=== PATIENT | female | born 1995 | race Two or more races ===

== ENCOUNTER 2018-08-19 17:11 | Emergency (ER) | payer OTHER ==
[~2018-08-19] VITALS: Ht 149.9 cm; Wt 54.4 kg
[2018-08-19] MEDS ORDERED: OBTREX DHA PRE1 EACH (17:26)
== END 2018-08-19 20:54 | disposition home or self-care (01) ==
LOC: ER 17:11
DX: O20.0 Threatened abortion (principal); Z34.01 Encounter for supervision of normal first pregnancy, first trimester

== ENCOUNTER 2018-09-19 16:56 | Emergency (ER) | payer OTHER ==
[~2018-09-19] VITALS: Ht 152.4 cm; Wt 56.7 kg
[~2018-09-19 16:56] MED LIST: OBTREX DHA PRE1 EACH
== END 2018-09-19 22:25 | disposition home or self-care (01) ==
LOC: ER 16:56
DX: O26.891 Other specified pregnancy related conditions, first trimester (principal); R10.2 Pelvic and perineal pain; Z34.01 Encounter for supervision of normal first pregnancy, first trimester

== ENCOUNTER 2018-11-12 10:24 | Emergency (ER) | payer OTHER ==
[~2018-11-12] VITALS: Ht 152.4 cm; Wt 55.8 kg
== END 2018-11-12 17:12 | disposition home or self-care (01) ==
LOC: ER 10:24
DX: O26.892 Other specified pregnancy related conditions, second trimester (principal); R10.2 Pelvic and perineal pain; O34.12 Maternal care for benign tumor of corpus uteri, second trimester; D25.9 Leiomyoma of uterus, unspecified; Z34.02 Encounter for supervision of normal first pregnancy, second trimester

== ENCOUNTER 2019-01-09 10:36 | Emergency (ER) | payer OTHER ==
[~2019-01-09] VITALS: Ht 152.4 cm; Wt 55.8 kg
[2019-01-09] MEDS ORDERED: [UNRECOGNIZED DRUG - OTHER] PO (11:01)
[2019-01-09] MEDS ORDERED: IPRAT-ALBUT 0.5-3 ML IH (15:07)
[2019-01-09] MEDS ORDERED: MUCINEX DM ER1 EAC1 PO (15:07)
[2019-01-09] MEDS ORDERED: BUDESONIDE0.5 MG/2 M IH (15:07)
[2019-01-09] MEDS ORDERED: ZITHROMAX500 MG PO (15:07)
== END 2019-01-09 15:50 | disposition home or self-care (01) ==
LOC: ER 10:36
DX: O26.892 Other specified pregnancy related conditions, second trimester (principal); J06.9 Acute upper respiratory infection, unspecified; B96.0 Mycoplasma pneumoniae [M. pneumoniae] as the cause of diseases classified elsewhere; Z34.02 Encounter for supervision of normal first pregnancy, second trimester

== ENCOUNTER 2019-01-10 07:26 | Emergency (ER) | payer OTHER ==
[~2019-01-10] VITALS: Ht 152.4 cm; Wt 55.8 kg
[~2019-01-10 07:26] MED LIST changes: +BUDESONIDE0.5 MG/2 M IH; +IPRAT-ALBUT 0.5-3 ML IH; +MUCINEX DM ER1 EAC1 PO; +ZITHROMAX500 MG PO; +[UNRECOGNIZED DRUG - OTHER] PO
== END 2019-01-10 19:10 | disposition home or self-care (01) ==
LOC: ER 07:26
DX: O26.892 Other specified pregnancy related conditions, second trimester (principal); J45.998 Other asthma; R10.2 Pelvic and perineal pain; Z3A.25 25 weeks gestation of pregnancy

== ENCOUNTER 2019-02-07 07:53 | Outpatient (CLI) | payer OTHER | END 2019-02-07 13:03 | disposition home or self-care (01) | LOC: OBS/DEL 07:53 | DX: O46.8X3 Other antepartum hemorrhage, third trimester (principal); Z34.03 Encounter for supervision of normal first pregnancy, third trimester; O34.13 Maternal care for benign tumor of corpus uteri, third trimester; D25.9 Leiomyoma of uterus, unspecified ==

== ENCOUNTER 2019-03-04 13:05 | Outpatient (CLI) | payer OTHER | END 2019-03-05 10:44 | disposition home or self-care (01) | LOC: OBS/DEL 13:05 | DX: O60.03 Preterm labor without delivery, third trimester (principal); Z34.03 Encounter for supervision of normal first pregnancy, third trimester ==

== ENCOUNTER 2019-04-17 02:35 | Inpatient (IN) | payer OTHER ==
[~2019-04-17] VITALS: Ht 152.4 cm; Wt 63.0 kg
[2019-04-17] MEDS ORDERED: VENTOLIN HFA18 GM IH (02:41)
[2019-04-17] MEDS ORDERED: ADVAIR HFA 230/12 GM IH (02:42)
== END 2019-04-19 13:22 | disposition home or self-care (01) | DRG 807 ==
LOC: LDR 02:35 → OB/GYN 20:33
PROVIDERS: ADMIT Obstetrics & Gynecology
PROC: 10E0XZZ Delivery of Products of Conception, External Approach (ICD-10-PCS; principal; 2019-04-17)
PROC: 0W8NXZZ Division of Female Perineum, External Approach (ICD-10-PCS; 2019-04-17)
PROC: 3E033VJ Introduction of Other Hormone into Peripheral Vein, Percutaneous Approach (ICD-10-PCS; 2019-04-17)
PROC: 4A1HXCZ Monitoring of Products of Conception, Cardiac Rate, External Approach (ICD-10-PCS; 2019-04-17)
DX: O80 Encounter for full-term uncomplicated delivery (principal); Z37.0 Single live birth; Z3A.39 39 weeks gestation of pregnancy

== ENCOUNTER 2021-11-14 18:34 | Emergency (ER) | payer OTHER ==
[~2021-11-14] VITALS: Ht 152.4 cm; Wt 60.8 kg
[~2021-11-14 18:34] MED LIST changes: +ADVAIR HFA 230/12 GM IH; +VENTOLIN HFA18 GM IH
== END 2021-11-14 21:42 | disposition home or self-care (01) ==
LOC: ER 18:34
DX: A60.09 Herpesviral infection of other urogenital tract (principal)

== ENCOUNTER 2023-02-08 09:57 | Emergency (ER) | payer OTHER ==
[~2023-02-08] VITALS: Ht 152.4 cm; Wt 61.2 kg
[2023-02-08] MEDS ORDERED: SINGULAIR 10MG10 MG PO (10:38)
== END 2023-02-08 11:16 | disposition home or self-care (01) ==
LOC: ER 09:57
DX: T78.49XA Other allergy, initial encounter (principal); X58.XXXA Exposure to other specified factors, initial encounter; Z91.011 Allergy to milk products; Z91.013 Allergy to seafood

== ENCOUNTER 2023-03-11 06:11 | Emergency (ER) | payer OTHER ==
[~2023-03-11] VITALS: Ht 152.4 cm; Wt 62.6 kg
[~2023-03-11 06:11] MED LIST changes: +SINGULAIR 10MG10 MG PO
[2023-03-11] MEDS ORDERED: MILLIPRED5 MG (06:25)
[2023-03-11] MEDS ORDERED: PROAIR RESPICL90 MCG (06:25)
== END 2023-03-11 11:31 | disposition home or self-care (01) ==
LOC: ER 06:11
DX: J45.998 Other asthma (principal); Z91.013 Allergy to seafood; Z91.011 Allergy to milk products; Z20.822 Contact with and (suspected) exposure to COVID-19

== ENCOUNTER 2023-04-01 14:26 | Inpatient (IN) | payer OTHER ==
[~2023-04-01] VITALS: Ht 157.5 cm; Wt 63.5 kg
[~2023-04-01 14:26] MED LIST changes: +MILLIPRED5 MG; +PROAIR RESPICL90 MCG
[2023-04-01] MEDS ORDERED: SINGULAIR10 MG (15:24)
== END 2023-04-04 15:09 | disposition home or self-care (01) | DRG 203 ==
LOC: ER 14:26 → MEDJ 20:53 → SEC-K 20:53 → MEDJ 04-02 17:05
PROVIDERS: ADMIT Specialist; ATTEND Specialist
DX: J45.41 Moderate persistent asthma with (acute) exacerbation (principal); R09.02 Hypoxemia; Z20.822 Contact with and (suspected) exposure to COVID-19; A49.3 Mycoplasma infection, unspecified site

== ENCOUNTER 2023-08-25 09:31 | Emergency (ER) | payer OTHER ==
[~2023-08-25] VITALS: Ht 152.4 cm; Wt 60.8 kg
[~2023-08-25 09:31] MED LIST changes: +SINGULAIR10 MG
[2023-08-25 11:01] LABS: HEMOGLOBIN 14.3 g/dL (12.0-15.00); MEAN CELL VOLUME 92.2 fL (80.00-100.00); MEAN CORPUSCULAR HEMOGLOBIN 30.7 pg (27.00-32.0); MEAN CORPUSCULAR HGB CONC 33.3 g/dl (32.0-36.0); PLATELET COUNT 289 K/uL (150-450); RED BLOOD COUNT 4.66 M/uL (4.00-6.00)
[2023-08-25 12:12] LABS: CALCIUM 8.5 mg/dL (8.5-10.1); CREATININE SERUM 0.54 mg/dL (0.55-1.02); GFR 134.43; POTASSIUM 3.84 mEq/L (3.5-5.1)
== END 2023-08-25 13:29 | disposition home or self-care (01) ==
LOC: ER 09:31
PROVIDERS: Emergency Medicine
DX: J45.901 Unspecified asthma with (acute) exacerbation (principal); Z91.011 Allergy to milk products; Z91.013 Allergy to seafood

== ENCOUNTER 2023-09-03 16:22 | Emergency (ER) | payer OTHER ==
[~2023-09-03] VITALS: Ht 152.4 cm; Wt 63.5 kg
[2023-09-03 17:09] LABS: HEMATOCRIT 42.7 % (36.0-45.00); HEMOGLOBIN 14.1 g/dL (12.0-15.00); MEAN CELL VOLUME 92.1 fL (80.00-100.00); MEAN CORPUSCULAR HEMOGLOBIN 30.3 pg (27.00-32.0); MEAN CORPUSCULAR HGB CONC 32.9 g/dl (32.0-36.0); PLATELET COUNT 300 K/uL (150-450); RED BLOOD COUNT 4.64 M/uL (4.00-6.00); RED CELL DISTRIBUTION WIDTH 12.9 % (11.5-14.5)
== END 2023-09-03 18:59 | disposition home or self-care (01) ==
LOC: ER 16:22
PROVIDERS: General Practice
DX: R51.9 Headache, unspecified (principal); Z91.013 Allergy to seafood; Z91.011 Allergy to milk products
CPT/HCPCS: 36415; 70450; 96372; 99284; J3490

== ENCOUNTER 2023-12-19 10:14 | Emergency (ER) | payer OTHER ==
[~2023-12-19] VITALS: Ht 152.4 cm; Wt 61.7 kg
[2023-12-19] MEDS ORDERED: ALBUTEROL2.5 MG/3 M IH (10:46)
== END 2023-12-19 13:01 | disposition home or self-care (01) ==
LOC: ER 10:14
DX: J06.9 Acute upper respiratory infection, unspecified (principal); Z20.822 Contact with and (suspected) exposure to COVID-19; Z91.011 Allergy to milk products; Z91.013 Allergy to seafood

== ENCOUNTER 2024-06-25 15:48 | Emergency (ER) | payer OTHER ==
[~2024-06-25] VITALS: Ht 152.4 cm; Wt 61.2 kg
[~2024-06-25 15:48] MED LIST changes: +ALBUTEROL2.5 MG/3 M IH; +MONTELUKAST SODI4 M1; +WIXELA 100-501 EACH
[2024-06-25] MEDS ORDERED: KETOROLAC TROMETHAMINE 60 MG VIAL IM ONE ×2 (16:30→16:34)
[2024-06-25] MEDS ORDERED: DICLOFENAC SODI50 MG PO (17:34)
== END 2024-06-25 18:53 | disposition home or self-care (01) ==
LOC: ER 15:49
DX: M79.675 Pain in left toe(s) (principal); Z91.013 Allergy to seafood; Z91.011 Allergy to milk products; S90.112A Contusion of left great toe without damage to nail, initial encounter; W18.39XA Other fall on same level, initial encounter; Y93.89 Activity, other specified; Y92.89 Other specified places as the place of occurrence of the external cause
CPT/HCPCS: 73660; 96372; 99283; J1885

== ENCOUNTER 2024-08-29 19:48 | Emergency (ER) | payer OTHER ==
[~2024-08-29] VITALS: Ht 152.4 cm; Wt 68.9 kg
[~2024-08-29 19:48] MED LIST changes: +DICLOFENAC SODI50 MG PO
[2024-08-29] MEDS ORDERED: BENTONITE500 GM (19:57)
[2024-08-29] MEDS ORDERED: KETOROLAC TROMETHAMINE 60 MG VIAL IM STA (21:56)
[2024-08-29] MEDS ORDERED: ORPHENADRINE CITRATE 30 MG/ML AMPUL IM STA (21:57)
== END 2024-08-29 22:09 | disposition home or self-care (01) ==
LOC: ER 19:49
DX: M62.830 Muscle spasm of back (principal); Z91.011 Allergy to milk products; Z91.013 Allergy to seafood

== ENCOUNTER 2025-05-31 14:34 | Emergency (ER) | payer OTHER ==
[~2025-05-31] VITALS: Ht 152.4 cm; Wt 70.8 kg
[~2025-05-31 14:34] MED LIST changes: +BENTONITE500 GM
[2025-05-31] MEDS ORDERED: SUMATRIPTAN SUCCINATE 6 MG/0.5 ML VIAL SUBCUTANEO ONE (15:00)
[2025-05-31] MEDS ORDERED: CETIRIZINE HCL 5 MG/5 ML ML PO ONE (15:00)
[2025-05-31 15:47] LABS: BASO % 0.7 % (0.1-1.2); EOS # 0.39 (0.04-0.54); EOS % 5.7 % (0.7-7.0); LYMPH # 2.17 (1.18-3.74); LYMPH % 31.8 % (19.3-53.1); MEAN PLATELET VOLUME 9.40 fl (9.4-12.4); MONO # 0.72 (0.24-0.82); MONO % 10.6 % (4.7-12.5); NEUT # 3.48 (1.56-6.13); NEUT % 51.1 % (34.0-71.1); RED CELL DISTRIBUTION WIDTH 12.6 % (11.6-14.4)
[2025-05-31 16:22] LABS: COVID-19 AG NEGATIVE (NEGATIVE)
== END 2025-06-01 18:22 | disposition home or self-care (01) ==
LOC: ER 14:34
PROVIDERS: General Practice
DX: G43.909 Migraine, unspecified, not intractable, without status migrainosus (principal); R53.81 Other malaise; Z20.822 Contact with and (suspected) exposure to COVID-19; Z91.011 Allergy to milk products; Z91.013 Allergy to seafood; Z87.09 Personal history of other diseases of the respiratory system

== ENCOUNTER 2025-08-17 00:12 | Emergency (ER) | payer OTHER ==
[~2025-08-17] VITALS: Ht 152.4 cm; Wt 72.6 kg
[2025-08-17 01:00] VITALS: BP 101/58; O2SAT 98
[2025-08-17] MEDS ORDERED: IPRATROPIUM BROMIDE 0.5 MG/2.5 ML AMPUL.NEB IH SCH (02:15)
[2025-08-17] MEDS ORDERED: METHYLPREDNISOLONE SOD SUCC 125 MG VIAL IV ONE (02:15)
[2025-08-17] MEDS ORDERED: LEVALBUTEROL HCL 1.25 MG/3 ML SOLUTION IH SCH (02:15)
[2025-08-17] MEDS ORDERED: CEFTRIAXONE SODIUM 1,000 MG VIAL IV ONE (02:15)
[2025-08-17] MEDS ORDERED: MAGNESIUM SULFATE IN WATER 2 GM/50 ML PIGGYBAG IV ONE (02:15)
[2025-08-17] MEDS ORDERED: CETIRIZINE HCL 5 MG/5 ML ML PO ONE (02:15)
[2025-08-17] MEDS ORDERED: BENZONATATE 200 MG CAPSULE PO ONE (02:15)
[2025-08-17] MEDS ORDERED: METHYLPREDNISOLONE SOD SUCC 125 MG VIAL ONE (02:38)
[2025-08-17] MEDS ORDERED: CETIRIZINE HCL 5MG/5ML BLIST.PACK PO ONE (02:38)
[2025-08-17] MEDS ORDERED: CEFTRIAXONE SODIUM 1,000 MG VIAL ONE (02:38)
[2025-08-17 03:05] LABS: BASO % 0.7 % (0.1-1.2); EOS # 0.44 (0.04-0.54); EOS % 4.6 % (0.7-7.0); LYMPH # 2.12 (1.18-3.74); LYMPH % 22.0 % (19.3-53.1); MEAN PLATELET VOLUME 9.10 fl (9.4-12.4); MONO # 0.81 (0.24-0.82); MONO % 8.4 % (4.7-12.5); NEUT # 6.15 (1.56-6.13); NEUT % 64.0 % (34.0-71.1); RED CELL DISTRIBUTION WIDTH 12.2 % (11.6-14.4)
[2025-08-17] MEDS ORDERED: IPRATROPIUM BROMIDE 0.5 MG/2.5 ML AMPUL.NEB IH ONE (03:29)
[2025-08-17] MEDS ORDERED: LEVALBUTEROL HCL 0.63 MG/3 ML SOLUTION IH ONE (03:29)
[2025-08-17 03:46] LABS: COVID-19 AG NEGATIVE (NEGATIVE)
[2025-08-17] MEDS ORDERED: BENZONATATE200 M1 PO (03:56)
[2025-08-17] MEDS ORDERED: ZITHROMAX500 MG PO (03:56)
[2025-08-17] MEDS ORDERED: LEVALBUTER0.63 MG/3 IH (03:56)
[2025-08-17] MEDS ORDERED: PEPCID AC20 MG PO (03:56)
[2025-08-18] MEDS ORDERED: ALBUTEROL0.63 MG/3 IH (15:48)
[2025-08-18] MEDS ORDERED: MACROBID 100 M100 MG PO (15:48)
[2025-08-18] MEDS ORDERED: IPRAT-ALBUT 0.5-3 ML IH (15:48)
[2025-08-18] MEDS ORDERED: MEDROLPACK PO (15:48)
[2025-08-18] MEDS ORDERED: FLONASE ALLERG9.9 ML NASAL (15:48)
== END 2025-08-17 04:26 | disposition home or self-care (01) ==
LOC: ER 00:12
PROVIDERS: General Practice
DX: J45.909 Unspecified asthma, uncomplicated (principal); Z91.0110 Allergy to milk products, unspecified; Z91.013 Allergy to seafood; J00 Acute nasopharyngitis [common cold]; Z20.822 Contact with and (suspected) exposure to COVID-19

== ENCOUNTER 2025-08-18 10:41 | Emergency (ER) | payer OTHER ==
[~2025-08-18] VITALS: Ht 152.4 cm; Wt 72.6 kg
[~2025-08-18 10:41] MED LIST changes: +BENZONATATE200 M1 PO; +LEVALBUTER0.63 MG/3 IH; +PEPCID AC20 MG PO
[2025-08-18] MEDS ORDERED: IPRATROPIUM BROMIDE 0.5 MG/2.5 ML AMPUL.NEB IH ONE ×2 (12:45→14:05)
[2025-08-18] MEDS ORDERED: GUAIFENESIN 200 MG/10 ML BLIST.PACK PO ONE ×2 (12:45→13:02)
[2025-08-18] MEDS ORDERED: ALBUTEROL SULFATE 3 ML/2.5 MG AMPUL.NEB IH SCH (12:45)
[2025-08-18] MEDS ORDERED: AZITHROMYCIN 500 MG VIAL IV ONE ×2 (12:45→13:01)
[2025-08-18] MEDS ORDERED: ACETAMINOPHEN 500 MG GEL..CAP PO ONE ×2 (12:45→13:01)
[2025-08-18] MEDS ORDERED: METHYLPREDNISOLONE SOD SUCC 125 MG VIAL IV ONE (12:45)
[2025-08-18] MEDS ORDERED: METHYLPREDNISOLONE SOD SUCC 125 MG VIAL ONE (13:01)
[2025-08-18 13:46] LABS: BASO % 0.1 % (0.1-1.2); EOS # 0.08 (0.04-0.54); EOS % 0.6 % (0.7-7.0); LYMPH # 3.16 (1.18-3.74); LYMPH % 22.5 % (19.3-53.1); MEAN PLATELET VOLUME 9.30 fl (9.4-12.4); MONO # 1.11 (0.24-0.82); MONO % 7.9 % (4.7-12.5); NEUT # 9.61 (1.56-6.13); NEUT % 68.6 % (34.0-71.1); RED CELL DISTRIBUTION WIDTH 12.7 % (11.6-14.4)
[2025-08-18 13:49] LABS: ERYTHROCYTE SEDIMENTATION RATE 9 mm/hr (0-20)
[2025-08-18] MEDS ORDERED: ALBUTEROL SULFATE 3 ML/2.5 MG AMPUL.NEB IH ONE (14:06)
[2025-08-18 14:15] LABS: URINE APPEARANCE Cloudy; URINE BILIRRUBIN Negative (NEGATIVE); URINE BLOOD Small; URINE COLOR Yellow; URINE GLUCOSE Negative (NEGATIVE); URINE KETONE Trace (NEGATIVE); URINE LEUKOCYTE Negative; URINE NITRATE Negative; URINE PROTEIN Trace (NEGATIVE); URINE UROBILINOGEN 1.0 E.U./dl
[2025-08-18 14:18] LABS: URINE BACTERIA 2083.0 uL (0.0-1933); URINE EPITHELIAL CELLS 156.4 uL (0.0-38.8); URINE RBC 75.6 uL (0.0-20.8); URINE WBC 8.9 uL (0.0-23.2)
[2025-08-18 14:29] LABS: ALT/SGPT 143.0 U/L (12-78); AST/SGOT 47.0 U/L (15-37); BILIRUBIN TOTAL 0.26 mg/dL (0.3-1.2); BUN CREA RATIO 26.0 (7.0-25.0); CREATININE SERUM 0.9 mg/dL (0.55-1.02); GFR 73.52; GLOBULINA 3.7 G/DL (2.4-3.5); GLUCOSE FASTING 91.0 mg/dL (65-100); OSMOLALITY SERUM 283.0 MOSM/KG (275-295)
[2025-08-18 15:24] LABS: URINE CAST 0.43 uL (0.0-1.40); URINE CRYSTALS FEW /HPF; URINE MUCUS MODERATE
[2025-08-18] MEDS ORDERED: MACROBID 100 M100 MG PO (15:48)
[2025-08-18] MEDS ORDERED: FLONASE ALLERG9.9 ML NASAL (15:48)
[2025-08-18] MEDS ORDERED: IPRAT-ALBUT 0.5-3 ML IH (15:48)
[2025-08-18] MEDS ORDERED: ALBUTEROL0.63 MG/3 IH (15:48)
[2025-08-18] MEDS ORDERED: MEDROLPACK PO (15:48)
[2025-08-18 17:09] VITALS: BP 108/80; O2SAT 100
== END 2025-08-18 17:11 | disposition home or self-care (01) ==
LOC: ER 10:41
DX: J20.9 Acute bronchitis, unspecified (principal); J45.998 Other asthma; Z91.0110 Allergy to milk products, unspecified; Z91.013 Allergy to seafood; N39.0 Urinary tract infection, site not specified

== ENCOUNTER 2025-09-22 14:27 | Outpatient (CLI) | payer OTHER ==
[~2025-09-22 14:27] MED LIST changes: +ALBUTEROL0.63 MG/3 IH; +FLONASE ALLERG9.9 ML NASAL; +MACROBID 100 M100 MG PO; +MEDROLPACK PO
== END 2025-09-22 14:37 | disposition home or self-care (01) ==
LOC: PPH VACUNA 14:27
PROVIDERS: ATTEND Emergency Medicine Pediatric Emergency Medicine
DX: Z23 Encounter for immunization (principal)